=== PATIENT | female | born 1990 | race Caucasian/White ===

== ENCOUNTER 2017-02-13 16:23 | Emergency (ER) | payer MEDICAID ==
--- NOTE | 2017-02-13 16:56 | ED Physician Chart ---
ED Chief Complaint/HPI - Patient Information Date Seen:: 02/13/17 Time Seen:: 16:45 Chief Complaint:: ABDOMINAL PAIN AND History of Present Illness:: THIS IS A 26 YEAR OLD FEMALE WHO IS FOUR MONTHS AND IS HAVING PAIN IN THE LOWER. SHE DENIES HAVING ANY CARE. SHE IS CONCERN SINCE SHE LOST A IN THE PAST. Allergies:: Allergies Allergy/AdvReac Type Severity Reaction Status Date / Time No Known Allergies Allergy Verified 02/13/17 16:35 Vitals:: Vital Signs - 8 hr 02/13/17 16:35 Temp 97.7 F HR 75 RR 16 BP 117/65 O2 Sat % 97 Historian:: Patient Review:: Nurse's Note Reviewed ED Review of Systems - Review of Systems General/Constitutional: No fever, No chills, No weight loss, No weakness, No diaphoresis, No edema, No loss of appetite Skin: No skin lesions, No rash, No bruising Head: No headache, No light-headedness Eyes: No loss of vision, No pain, No diplopia ENT: No earache, No nasal drainage, No sore throat, No tinnitus Neck: No neck pain, No swelling, No thyromegaly, No stiffness, No mass noted Cardio Vascular: No chest pain, No palpitations, No PND, No orthopnea, No edema Pulmonary: No SOB, No cough, No sputum, No wheezing GI: Nausea, No vomiting, No diarrhea, Pain, No melena, No hematochezia, No constipation, No hematemesis G/U: No dysuria, No frequency, No hematuria Entertainment Reporter: Other (PELVIC PAIN) Musculoskeletal: No bone or joint pain, No back pain, No muscle pain Endocrine: No polyuria, No polydipsia Psychiatric: No prior psych history, No depression, No anxiety, No suicidal ideation Hematopoietic: No bruising, No lymphadenopathy Allergic/Immuno: No urticaria, No angioedema Neurological: No syncope, No focal symptoms, No weakness, No paresthesia, No headache, No seizure, No dizziness, No confusion, No vertigo ED Past Medical History - Past Medical History Obtainable: Yes Past Medical History: No significant medical hx Family History: None Social History: Non Smoker, No Alcohol, No Drug Use Surgical History: other (UTERINE S) Psychiatricy History: None Family Medical History - Family Member Mother History Unknown: Yes Hx Family Cancer: No Hx Family Coronary Artery Disease: No Hx Family Congestive Heart Failure: No Hx Family Hypertension: No Hx Family Stroke: No Hx Family Dementia: No ED Physical Exam - Physical Examination General/Constitutional: Awake, Well-developed, well-nourished, Alert, No distress, GCS 15, Non-toxic appearing, Ambulatory Head: Atraumatic Eyes: Lids, conjuctiva normal, PERRL, EOMI Skin: Nl inspection, No rash, No skin lesions, No ecchymosis, Well hydrated, No lymphadenopathy ENMT: External ears, nose nl, Nasal exam nl, Lips, teeth, gums nl Neck: Nontender, Full ROM w/o pain, No JVD, No nuchal rigidity, No bruit, No mass, No stridor Respiratory: Nl effort/Exclusion, Clear to Auscultation, No Wheeze/Rhonchi/Rales Cardio Vascular: RRR, No murmur, gallop, rubs, NL S1 S2 GI: No organomegaly, No hernia, Normal BS's, Nondistended, No mass/bruits, No McBurney tenderness Other GI comments:: MINIMAL TENDERNESS OF THE LOWER ABDOMEN : No CVA tenderness Extremities: No tenderness or effusion, Full ROM, normal strength in all extremities, No edema, Normal digits & nails Neuro/Psych: Alert/oriented, DTR's symmetric, Normal sensory exam, Normal motor strength, Judgement/insight normal, Mood normal, Normal gait, No focal deficits Misc: normal gait, Normal back, No paraspinal tenderness ED Labs/Radiology/EKG Results - Lab Results Results: Abnormal Lab Results 02/13/17 02/13/17 02/13/17 16:55 16:55 16:55 WBC 6.0 RBC 4.36 Hgb 14.0 Hct 41.2 MCV 94.7 MCH 32.2 H MCHC Differential 34.0 RDW 12.0 Plt Count 381 MPV 7.4 Neutrophils % 62.7 Lymphocytes % 31.1 Monocytes % 4.7 Eosinophils % 0.7 Basophils % 0.8 PT 9.8 INR 0.94 Sodium 134 L Potassium 3.4 L Chloride 104 Carbon Dioxide 25.3 Anion Gap 8.1 BUN 7 Creatinine 0.6 Est GFR ( Amer) > 60.0 Est GFR (Non-Af Amer) > 60.0 BUN/Creatinine Ratio 11.7 Glucose 99 Calcium 9.5 Total Bilirubin 0.5 AST 14 ALT 7 Alkaline Phosphatase 38 Total Protein 7.2 Albumin 4.3 Globulin 2.9 Albumin/Globulin Ratio 1.5 Triglycerides 63 Cholesterol 179 LDL Cholesterol Direct 111 HDL Cholesterol 69 TSH Urine Source Urine Color Urine Clarity Urine pH Ur Specific [place] Urine Protein Urine Glucose (UA) Urine Ketones Urine Blood Urine Nitrate Urine Bilirubin Urine Urobilinogen Ur Leukocyte Esterase Urine RBC Urine WBC Ur Epithelial Cells Urine Bacteria 02/13/17 02/13/17 16:55 18:00 WBC RBC Hgb Hct MCV MCH MCHC Differential RDW Plt Count MPV Neutrophils % Lymphocytes % Monocytes % Eosinophils % Basophils % PT INR Sodium Potassium Chloride Carbon Dioxide Anion Gap BUN Creatinine Est GFR ( Amer) Est GFR (Non-Af Amer) BUN/Creatinine Ratio Glucose Calcium Total Bilirubin AST ALT Alkaline Phosphatase Total Protein Albumin Globulin Albumin/Globulin Ratio Triglycerides Cholesterol LDL Cholesterol Direct HDL Cholesterol TSH 1.40 Urine Source CLEAN C Urine Color YELLOW Urine Clarity CLOUDY H Urine pH 7.0 Ur Specific [place] 1.010 Urine Protein NEGATIVE Urine Glucose (UA) NEGATIVE Urine Ketones NEGATIVE Urine Blood NEGATIVE Urine Nitrate NEGATIVE Urine Bilirubin NEGATIVE Urine Urobilinogen 0.2 Ur Leukocyte Esterase SMALL H Urine RBC NONE SEEN Urine WBC 6-10 H Ur Epithelial Cells FEW Urine Bacteria MANY - Radiology Results Results: ultrasound of the pelvis = normal iup with movement and heart beat. ED Assessment - Assessment General Assessment: early urinary tract infection ED Septic Shock - . Is Septic Shock (SBP<90, OR Lactate>4 mmol\L) present?: No - <6hrs of presentation: Vital Signs: Vital Signs - 8 hr 02/13/17 16:35 Temp 97.7 F HR 75 RR 16 BP 117/65 O2 Sat % 97 ED Reassessment (Disposition) - Reassessment Reassessment Condition:: Improved - Diagnosis Diagnosis:: urinary tract infection early - Aftercare/Follow up Instructions Aftercare/Follow-Up Instructions:: Counseled pt regarding lab results/diagnosis & need follow up, Refer to Discharge Instructions, Counseled pt & family regarding lab results/diagnosis & need follow up - Patient Disposition Discharge/Transfer:: Home Condition at Disposition:: Unchanged ED Discharge Plan - Patient Disposition Admit/Discharge/Transfer: PT DISCHARGED HOME Condition at Disposition: Unchanged
[2017-02-13 17:07] LABS: % BASOPHILS 0.8 % (0.0-2.0); % EOSINOPHILS 0.7 % (0.0-5.0); % LYMPHOCYTES 31.1 % (20.0-50.0); % MONOCYTES 4.7 % (2.0-10.0); % NEUTROPHILS 62.7 % (40.0-80.0); HEMATOCRIT 41.2 % (41.0-60); MEAN CELL VOLUME 94.7 fl (81-100); MEAN CORPUSCULAR HEMOGLOBIN 32.2 pg (27.0-31.0); MEAN PLATELET VOLUME 7.4 fl; NEUTROPHILE ABSOLUTE 3.8 Th/cmm (1.8-8.0); PLATELET COUNT 381 Th/cmm (150-400); RED BLOOD COUNT 4.36 Mil/cmm (3.80-5.10)
[2017-02-13 17:21] LABS: INR 0.94 (0.5-1.4); PROTHROMBIN TIME (TEST) 9.8 SECONDS (9.5-11.5)
[2017-02-13 17:25] LABS: ALB/GLOB RATIO 1.5 (1.0-1.8); ALKALINE PHOSPHATASE 38 U/L (34-104); ANION GAP 8.1 (7.0-16.0); BILIRUBIN,TOTAL 0.5 mg/dL (0.3-1.0); BUN - UREA NITROGEN 7 mg/dL (7-25); BUN/CREATININE RATIO 11.7; CALCIUM SERUM 9.5 mg/dL (8.6-10.3); CARBON DIOXIDE 25.3 mEq/L (21.0-31.0); CHLORIDE 104 mEq/L (98-107); CHOLESTEROL 179 mg/dL (<200); CREATININE - SERUM 0.6 mg/dL (0.6-1.2); GLUCOSE 99 mg/dL (70-105); POTASSIUM SERUM 3.4 mEq/L (3.5-5.1); SGOT 14 U/L (13-39); SGPT/ALT 7 U/L (7-52); SODIUM SERUM 134 mEq/L (136-145); TRIGLYCERIDES 63 mg/dL (<150)
[2017-02-13 18:20] LABS: URINE BILIRUBIN NEGATIVE (NEGATIVE); URINE BLOOD NEGATIVE (NEGATIVE); URINE GLUCOSE (UA) NEGATIVE (NEGATIVE); URINE KETONE NEGATIVE (NEGATIVE); URINE PROTEIN NEGATIVE (NEGATIVE); URINE UROBILINOGEN 0.2 E.U./dL (0.2 - 1.0)
[2017-02-13 18:26] LABS: URINE BACTERIA MANY /hpf (NONE SEEN); URINE COLOR YELLOW; URINE EPITHELIAL CELLS FEW /lpf (FEW); URINE RBC NONE SEEN /hpf (0-5)
--- NOTE | 2017-02-14 08:32 | Diagnostic Imaging Report ---
OB ultrasound HISTORY: Pain The exam is limited to transabdominal sonographic technique as the patient declined transvaginal sonographic evaluation. There is a single intrauterine gestation with a well-defined sac. A pole is noted. cardiac activity is seen (168 BPM). The crown-rump length equals 2.6 cm. This is consistent with a sonographic age of 9 weeks 3 days +/- 1 week. The ovaries and adnexal regions are unremarkable. No abnormal masses. No abnormal fluid collections. IMPRESSION: 1. Single intrauterine gestation with a sonographic age of 9 weeks 3 days +/- 1 week
== END 2017-02-13 18:43 | disposition home or self-care (01) ==
LOC: ER 16:23
DX: O23.42 Unspecified infection of urinary tract in pregnancy, second trimester (principal); Z37.9 Outcome of delivery, unspecified; Z3A.16 16 weeks gestation of pregnancy
CPT/HCPCS: 36415-UA; 76801-TC; 80053-TC; 80061-TC; 81001-TC; 84443-TC; 85025-TC; 85610-TC